=== PATIENT | female | born 1985 | race American Indian/Alaskan Native ===

== ENCOUNTER 2021-03-20 17:52 | Emergency (ER) | payer SELFPAY ==
[2021-03-20 19:32] LABS: Basophils % (Auto) 0.1 % (0.0-1.8); Hematocrit 37.6 % (30.3-42.9); Lymphocytes # (Auto) 2.1 K/mm3 (1.2-5.4); Lymphocytes % (Auto) 15.2 % (13.4-35.0); Mean Corpuscular HGB Conc 35 % (30-34); Mean Corpuscular Volume 91 fl (79-97); Monocytes # (Auto) 0.7 K/mm3 (0.0-0.8); Monocytes % (Auto) 5.2 % (0.0-7.3); Platelet Count 249 K/mm3 (140-440); Red Blood Count 4.12 M/mm3 (3.65-5.03)
[2021-03-20 19:37] LABS: Alanine Aminotransferase 17 units/L (7-56); Albumin 5.2 g/dL (3.9-5); BUN/Creatinine Ratio 18; Blood Urea Nitrogen 11 mg/dL (7-17); Calcium 9.9 mg/dL (8.4-10.2); Hemolysis Index 4
[2021-03-20] MEDS ORDERED: ONDANSETRON 4 MG/2 ML INJ IV ONE (22:39)
[2021-03-20] MEDS ORDERED: MORPHINE 4 MG/1 ML INJ IV ONE (22:39)
[2021-03-20] MEDS ORDERED: dexAMETHasone 20 MG/5 ML VIAL IV ONE (22:58)
[2021-03-20] MEDS ORDERED: SODIUM CHLORIDE 0.9% 1000 ML 1,000 ML IV ONE (22:59)
--- NOTE | 2021-03-20 23:02 | Emergency Department Report ---
ED General Adult HPI - General Chief complaint: Abdominal Pain Stated complaint: NAUSIA VOMITING Time Seen by Provider: 03/20/21 22:16 Source: police, EMS Mode of arrival: Wheelchair Limitations: No Limitations - History of Present Illness Initial comments: 35-year-old -[place] female patient presents with complaints of generalized abdominal pain and vomiting with diarrhea starting yesterday. She reports a history of Crohn's disease and states this feels like a flare. She denies any hematemesis/coffee-ground emesis, melena/hematochezia, urinary symptoms, cough, shortness of breath, or chest pain. She rates her current pain as a 9/10 in severity. She does admit to chills and sweats -: Sudden Severity scale (0 -10): 10 - Related Data Previous Rx's Medication Instructions Recorded Last Taken Type CLOTRIMAZOLE 1% Vag Cream [Mycelex 1 applicatio VG QHS PRN 7 Days #1 03/21/21 Unknown Rx Vag cream] tube Ciprofloxacin HCl 500 mg PO BID 7 Days #14 tablet 03/21/21 Unknown Rx Prednisone [predniSONE 10 mg 10 mg PO .TAPER #1 tab.ds.pk 03/21/21 Unknown Rx (6-Day Pack, 21 Tabs)] Promethazine HCl [Promethazine TAB] 12.5 mg PO [id number] PRN #12 tab 03/21/21 Unknown Rx metroNIDAZOLE [Flagyl] 500 mg PO Q8HR 7 Days #21 tablet 03/21/21 Unknown Rx Allergies Allergy/AdvReac Type Severity Reaction Status Date / Time metoclopramide [From Reglan] Allergy Unknown Verified 03/20/21 18:41 fentanyl AdvReac Unknown Verified 03/20/21 18:41 ED Review of Systems ROS: Stated complaint: NAUSIA VOMITING Other details as noted in HPI Constitutional: chills, malaise, weakness. denies: fever ENT: denies: throat pain Respiratory: denies: cough, shortness of breath Cardiovascular: denies: chest pain Gastrointestinal: abdominal pain, nausea, vomiting, diarrhea. denies: constipation, hematemesis, melena, hematochezia Genitourinary: denies: urgency, dysuria, frequency, hematuria Skin: denies: rash, lesions, change in color Neurological: denies: headache ED Past Medical Hx - Past Medical History Previous Medical History?: Yes Additional medical history: CHRONS/ COLITIS/ ANXIETY - Surgical History Additional Surgical History: COLOECTOMY - Medications Home Medications: Home Medications Medication Instructions Recorded Confirmed Last Taken Type CLOTRIMAZOLE 1% Vag Cream [Mycelex 1 applicatio VG QHS PRN 7 Days #1 03/21/21 Unknown Rx Vag cream] tube Ciprofloxacin HCl 500 mg PO BID 7 Days #14 tablet 03/21/21 Unknown Rx Prednisone [predniSONE 10 mg 10 mg PO .TAPER #1 tab.ds.pk 03/21/21 Unknown Rx (6-Day Pack, 21 Tabs)] Promethazine HCl [Promethazine TAB] 12.5 mg PO [id number] PRN #12 tab 03/21/21 Unknown Rx metroNIDAZOLE [Flagyl] 500 mg PO Q8HR 7 Days #21 tablet 03/21/21 Unknown Rx ED Physical Exam - General Limitations: No Limitations General appearance: alert, in no apparent distress - Head Head exam: Present: atraumatic, normocephalic - Eye Eye exam: Present: normal appearance - Neck Neck exam: Present: normal inspection - Respiratory Respiratory exam: Present: normal lung sounds bilaterally. Absent: respiratory distress - Cardiovascular Cardiovascular Exam: Present: regular rate, normal rhythm - GI/Abdominal GI/Abdominal exam: Present: soft, tenderness (Generalized), normal bowel sounds. Absent: distended, guarding, rebound, rigid - Back Exam Back exam: Present: full ROM - Neurological Exam Neurological exam: Present: alert, oriented X3, normal gait - Psychiatric Psychiatric exam: Present: normal affect, normal mood - Skin Skin exam: Present: warm, dry, intact, normal color. Absent: rash, diaphoretic ED Course Vital Signs 03/20/21 03/20/21 03/21/21 18:43 22:43 00:35 Temperature 99.9 F H Pulse Rate 68 Respiratory 24 18 18 Rate Blood Pressure 146/80 [Right] O2 Sat by Pulse 100 Oximetry ED Medical Decision Making - Lab Data Result diagrams: 03/20/21 18:56 03/20/21 18:56 Lab Results 03/20/21 03/20/21 03/20/21 Range/Units 18:56 18:56 18:56 WBC 14.0 H (4.5-11.0) K/mm3 RBC 4.12 (3.65-5.03) M/mm3 Hgb 13.0 (10.1-14.3) gm/dl Hct 37.6 (30.3-42.9) % MCV 91 (79-97) fl MCH 31 (28-32) pg MCHC 35 H (30-34) % RDW 13.0 L (13.2-15.2) % Plt Count 249 (140-440) K/mm3 Lymph % (Auto) 15.2 (13.4-35.0) % [place] % (Auto) 5.2 (0.0-7.3) % Eos % (Auto) 0.0 (0.0-4.3) % Baso % (Auto) 0.1 (0.0-1.8) % Lymph # (Auto) 2.1 (1.2-5.4) K/mm3 [place] # (Auto) 0.7 (0.0-0.8) K/mm3 Eos # (Auto) 0.0 (0.0-0.4) K/mm3 Baso # (Auto) 0.0 (0.0-0.1) K/mm3 Seg Neutrophils % 79.5 H (40.0-70.0) % Seg Neutrophils # 11.1 H (1.8-7.7) K/mm3 Sodium 141 (137-145) mmol/L Potassium 3.4 L (3.6-5.0) mmol/L Chloride 98.6 (98-107) mmol/L Carbon Dioxide 24 (22-30) mmol/L Anion Gap 22 mmol/L BUN 11 (7-17) mg/dL Creatinine 0.6 (0.6-1.2) mg/dL Estimated GFR > 60 ml/min BUN/Creatinine Ratio 18 % Glucose 141 H (65-100) mg/dL Calcium 9.9 (8.4-10.2) mg/dL Total Bilirubin 0.60 (0.1-1.2) mg/dL AST 30 (5-40) units/L ALT 17 (7-56) units/L Alkaline Phosphatase 50 (35-129) units/L Total Protein 7.4 (6.3-8.2) g/dL Albumin 5.2 H (3.9-5) g/dL Albumin/Globulin Ratio 2.4 % Lipase 18 (13-60) units/L HCG, Quant (0-4) mIU/mL 03/20/21 Range/Units 18:56 WBC (4.5-11.0) K/mm3 RBC (3.65-5.03) M/mm3 Hgb (10.1-14.3) gm/dl Hct (30.3-42.9) % MCV (79-97) fl MCH (28-32) pg MCHC (30-34) % RDW (13.2-15.2) % Plt Count (140-440) K/mm3 Lymph % (Auto) (13.4-35.0) % [place] % (Auto) (0.0-7.3) % Eos % (Auto) (0.0-4.3) % Baso % (Auto) (0.0-1.8) % Lymph # (Auto) (1.2-5.4) K/mm3 [place] # (Auto) (0.0-0.8) K/mm3 Eos # (Auto) (0.0-0.4) K/mm3 Baso # (Auto) (0.0-0.1) K/mm3 Seg Neutrophils % (40.0-70.0) % Seg Neutrophils # (1.8-7.7) K/mm3 Sodium (137-145) mmol/L Potassium (3.6-5.0) mmol/L Chloride (98-107) mmol/L Carbon Dioxide (22-30) mmol/L Anion Gap mmol/L BUN (7-17) mg/dL Creatinine (0.6-1.2) mg/dL Estimated GFR ml/min BUN/Creatinine Ratio % Glucose (65-100) mg/dL Calcium (8.4-10.2) mg/dL Total Bilirubin (0.1-1.2) mg/dL AST (5-40) units/L ALT (7-56) units/L Alkaline Phosphatase (35-129) units/L Total Protein (6.3-8.2) g/dL Albumin (3.9-5) g/dL Albumin/Globulin Ratio % Lipase (13-60) units/L HCG, Quant < 2 (0-4) mIU/mL - Radiology Data Radiology results: report reviewed CT ABDOMEN AND PELVIS WITH CONTRAST HISTORY: abdominal pain, hx of chrons. COMPARISON: None. TECHNIQUE: CT images of the abdomen and pelvis were obtained following administration of intravenous contrast. All CT scans at this location are performed using CT dose reduction for ALARA by means of automated exposure control. CONTRAST: 100 ml of intravenous contrast administered. FINDINGS: Lungs/bones: Lung bases are clear Abdomen/pelvis: There is diffuse fatty infiltration of the liver. Spleen, adr enal glands, pancreas and gallbladder appear normal. Upper GI tract shows mild thickening of the dis shanti esophagus. No bowel obstruction is seen no hydronephrosis. No evidence for appendicitis. Bilateral adnexal cyst. Uterus is heterogeneous and prominent. Prominent pelvic vessels and vasculature are noted. There is thickening of the mid and distal transverse colon and descending colon. IMPRESSION: 1. Bowel wall thickening within the transverse colon and descending colon. Findings could represent inflammatory bowel disease with history of Crohn's disease. No focal inflammatory change. No bowel obstruction. 2. Uterus is heterogeneous and enlarged with bilateral adnexal cysts. Increased pelvic congestion. - Medical Decision Making 35-year-old -[place] female patient presents with complaints of generalized abdominal pain and vomiting with diarrhea starting yesterday. She reports a history of Crohn's disease and states this feels like a flare. She denies any hematemesis/coffee-ground emesis, melena/hematochezia, urinary symptoms, cough, shortness of breath, or chest pain. She rates her current pain as a 9/10 in severity. She does admit to chills and sweats CBC shows white count of 14. No significant abnormalities noted on CMP or lipase. CT abdomen shows Bowel wall thickening within the transverse colon and descending colon. Findings could representinflammatory bowel disease with history of Crohn's disease. No focal inflammatory change. No bowel obstruction. Patient's pain and vomiting is controlled here in ED. She was given a dose of Decadron and will discharge home with steroids, Cipro, and Flagyl. Patient to follow-up with primary care in 2 days. Discussed signs and symptoms that should prompt immediate return to the emergency department in detail with patient who verbalizes understanding. Her vitals are within normal limits, she is nontoxic-appearing, she is stable for discharge Critical care attestation.: If time is entered above; I have spent that time in minutes in the direct care of this critically ill patient, excluding procedure time. ED Disposition Clinical Impression: Exacerbation of Crohn's disease Disposition: DC- TO HOME OR SELFCARE Is pt being admited?: No Condition: Stable Instructions: Abdominal Pain (ED) Additional Instructions: Please follow-up with your primary care provider in 2 days Prescriptions: CLOTRIMAZOLE 1% Vag Cream [Mycelex Vag cream] 1 applicatio VG QHS PRN 7 Days #1 tube PRN Reason: yeast infection Promethazine HCl [Promethazine TAB] 12.5 mg PO [id number] PRN #12 tab PRN Reason: Nausea Ciprofloxacin HCl 500 mg PO BID 7 Days #14 tablet metroNIDAZOLE [Flagyl] 500 mg PO Q8HR 7 Days #21 tablet Prednisone [predniSONE 10 mg (6-Day Pack, 21 Tabs)] 10 mg PO .TAPER #1 tab.ds.pk
--- NOTE | 2021-03-21 00:25 | Cat Scan Report ---
CT ABDOMEN AND PELVIS WITH CONTRAST HISTORY: abdominal pain, hx of chrons. COMPARISON: None. TECHNIQUE: CT images of the abdomen and pelvis were obtained following administration of intravenous contrast. All CT scans at this location are performed using CT dose reduction for ALARA by means of automated exposure control. CONTRAST: 100 ml of intravenous contrast administered. FINDINGS: Lungs/bones: Lung bases are clear Abdomen/pelvis: There is diffuse fatty infiltration of the liver. Spleen, adrenal glands, pancreas a nd gallbladder appear normal. Upper GI tract shows mild thickening of the distal esophagus. No bowel obstruction is seen no hydronephrosis. No evidence for appendicitis. Bilateral adnexal cyst. Uterus i s heterogeneous and prominent. Prominent pelvic vessels and vasculature are noted. There is thickening of the mid and distal transverse colon and descending colon. IMPRESSION: 1. Bowel wall thickening within the transverse colon and descending colon. Findings could represent i nflammatory bowel disease with history of Crohn's disease. No focal inflammatory change. No bowel obs truction. 2. Uterus is heterogeneous and enlarged with bilateral adnexal cysts. Increased pelvic congestion. Signer Name: Ben Christianson MD Signed: 03/21/2021 12:21 AM Workstation Name: [id number]
[2021-03-21] MEDS ORDERED: ONDANSETRON 4 MG/2 ML INJ IV ONE (00:28)
[2021-03-21] MEDS ORDERED: KETOROLAC 30 MG/1 ML INJ IV ONE (00:28)
[2021-03-21 02:19] VITALS: BP 129/86
== END 2021-03-21 02:00 | disposition home or self-care (01) ==
LOC: EDBD → ED 17:52
DX: K50.90 Crohn's disease, unspecified, without complications (principal); F41.9 Anxiety disorder, unspecified; Z79.899 Other long term (current) drug therapy; Z88.8 Allergy status to other drugs, medicaments and biological substances; Z98.890 Other specified postprocedural states
CPT/HCPCS: 36415; 74177; 80053; 83690; 84702; 85025; 96361; 96374; 96375; 96376; 99284; J1100; J1885; J2270; J2405; J7030; Q9967

== ENCOUNTER 2021-10-19 04:52 | Emergency (ER) | payer SELFPAY ==
[2021-10-19] MEDS ORDERED: SODIUM CHLORIDE 0.9% 1000 ML 1,000 ML IV ONE ×2 (05:17→07:10)
[2021-10-19 05:39] LABS: Hematocrit 43.6 % (30.3-42.9); Hemoglobin 14.2 gm/dl (10.1-14.3); Mean Corpuscular HGB Conc 33 % (30-34); Mean Corpuscular Volume 90 fl (79-97); Platelet Count 284 K/mm3 (140-440); Red Blood Count 4.87 M/mm3 (3.65-5.03); Red Cell Distribution Width 13.1 % (13.2-15.2)
[2021-10-19] MEDS ORDERED: HALOPERIDOL LACTATE 5 MG/1 ML INJ IM ONE (05:41)
[2021-10-19] MEDS ORDERED: MORPHINE 4 MG/1 ML INJ IV STA (05:41)
[2021-10-19] MEDS ORDERED: HYOSCYAMINE SUBL 0.125 MG TAB SL ONE (05:49)
--- NOTE | 2021-10-19 05:49 | Event Note ---
ED Screening Note ED Screening Note: 36-year-old -[place] female with a past medical history of possible Crohn's presents emergency department complaining of a flareup started 2 days ago after eating some salmon pasta. Preceding the nausea vomiting and stomach pain was started after eating some pasta she reports having about a 1 week h istory of nausea and cramping. No hemoptysis no hematemesis hematochezia This initial assessment/diagnostic orders/clinical plan/treatment(s) is/are subject to change based on patients health status, clinical progression and re- assessment by fellow clinical providers in the ED. Further treatment and workup at subsequent clinical providers discretion. Patient/guardian urged not to elope from the ED as their condition may be serious if not clinically assessed and managed. Initial orders include:
[2021-10-19 05:53] LABS: Alanine Aminotransferase 37 units/L (7-56); Albumin 5.3 g/dL (3.9-5); Blood Urea Nitrogen 17 mg/dL (7-17); Calcium 10.1 mg/dL (8.4-10.2); Hemolysis Index 5
[2021-10-19 06:01] LABS: BUN/Creatinine Ratio 24
--- NOTE | 2021-10-19 06:45 | Cat Scan Report ---
CT abdomen pelvis w con INDICATION / CLINICAL INFORMATION: Lower ABD Pain. History of Crohn's disease TECHNIQUE: Axial CT imaging of abdomen and pelvis was obtained with 100 cc Omnipaque 300 IV contrast. Coronal an d sagittal reformatted imaging obtained and reviewed. All CT scans at this location are performed us ing CT dose reduction for ALARA by means of automated exposure control. COMPARISON: Prior CT abdomen/pelvis 03/20/2021 FINDINGS: CT abdomen with IV contrast demonstrates normal appearance of the liver, spleen, pancreas, kidneys, a nd adrenal glands. Gallbladder is present without obvious abnormality. No biliary dilatation. Abdomin al aorta is unremarkable. CT pelvis with contrast demonstrates mild to moderately enlarged uterus. There is prominent vasculari ty surrounding the uterus consistent with pelvic congestion. This was noted on the prior CT and is no t particularly changed.. A normal appendix is present in the right midabdomen, retrocecal position. T race amount of free fluid is present in the posterior cul-de-sac. GI tract is grossly unremarkable. No CT findings to suggest active Crohn's disease or other acute inf lammatory process. Visualized lung bases are clear. No acute osseous abnormality. IMPRESSION: 1. No acute finding within the abdomen or pelvis. 2. Prominent pelvic vascularity surrounding the uterus consistent with pelvic congestion. This findin g is unchanged compared with prior CT of 03/20/2021. This can account for pelvic pain. 3. No evidence for active Crohn's disease or other acute inflammatory process on today's exam. 4. Trace amount of free fluid in the posterior cul-de-sac, most likely physiologic. Signer Name: Sue Suh MD Signed: 10/19/2021 6:41 AM Workstation Name: [id number]
[2021-10-19 06:57] LABS: Bacteria,Urine 4+ /HPF (Negative); Bilirubin,Urine NEG (Negative); Blood,Urine NEG (Negative); Color,Urine Amber (Yellow); Mucus,Urine 3+ /HPF
[2021-10-19] MEDS ORDERED: ONDANSETRON 4 MG/2 ML INJ IV ONE (06:57)
[2021-10-19 07:00] LABS: Band Neutrophils # (Manual) 0.1 K/mm3; Basophils % (Manual) 0 % (0.0-1.8); Eosinophils % (Manual) 0 % (0.0-4.3); Myelocytes # (Manual) 0.5 K/mm3; Promyelocytes # (Manual) 0.1 K/mm3; Total Cells Counted 100
[2021-10-19 07:01] LABS: Platelet Estimate Consistent w Auto
[2021-10-19] MEDS ORDERED: MORPHINE 4 MG/1 ML INJ IV ONE (07:10)
[2021-10-19] MEDS ORDERED: cefTRIAXone/NS 1 GM/50 ML 1 GM/50 ML BAG IV ONE (07:11)
--- NOTE | 2021-10-19 07:29 | Emergency Department Report ---
ED N/V/D HPI - General Chief complaint: Abdominal Pain Stated complaint: EMESIS Time Seen by Provider: 10/19/21 06:57 Source: patient Mode of arrival: Ambulatory Limitations: No Limitations - History of Present Illness Initial comments: 36-year-old female with a past medical history of anxiety and Crohn's disease and anxiety presents to the hospital planing of abdominal pain, nausea, vomiting, diarrhea and p.o. intolerance for the past 4 days. Patient states she has not had any urine output for last 2 days. She denies melena, hematochezia, hematemesis, or fever. She complains of intermittent 10/10 mid abdominal sharp stabbing pain is worse with palpation. No alleviating factors reported. October 2020 she states she was admitted to another hospital for similar symptoms and had endoscopy which showed inflammation of the first part of her i ntestines therefore she was diagnosed with Crohn's. Since her inpatient work-up and evaluation patient has not follow-up with GI doctor for further work-up and treatment. Patient was here in March 2021 with similar findings and CT showed thickening of the transverse and descending colon at that time and pelvic tension. Patient also had mild thickening of her distal esophagus at that time - Related Data Previous Rx's Medication Instructions Recorded Last Taken Type Acetaminophen/Codeine [Tylenol 1 tab PO Q8H PRN #10 tab 03/21/21 Unknown Rx /Codeine # 3 tab] CLOTRIMAZOLE 1% Vag Cream [Mycelex 1 applicatio VG QHS PRN 7 Days #1 03/21/21 Unknown Rx Vag cream] tube Ciprofloxacin HCl 500 mg PO BID 7 Days #14 tablet 03/21/21 Unknown Rx Prednisone [predniSONE 10 mg 10 mg PO .TAPER #1 tab.ds.pk 03/21/21 Unknown Rx (6-Day Pack, 21 Tabs)] Promethazine HCl [Promethazine TAB] 12.5 mg PO [id number] PRN #12 tab 03/21/21 Unknown Rx metroNIDAZOLE [Flagyl] 500 mg PO Q8HR 7 Days #21 tablet 03/21/21 Unknown Rx Acetaminophen/Codeine [Tylenol 1 tab PO Q6H PRN #10 tab 10/19/21 Unknown Rx /Codeine # 3 tab] Dicyclomine [Bentyl] 20 mg PO QID #12 tablet 10/19/21 Unknown Rx Nitrofurantoin Bledsoe/M-Cryst 100 mg PO Q12HR #10 capsule 10/19/21 Unknown Rx [Macrobid CAP] Ondansetron [Zofran Odt] 4 mg PO Q8HR PRN #20 tab.rapdis 10/19/21 Unknown Rx Allergies Allergy/AdvReac Type Severity Reaction Status Date / Time metoclopramide [From Reglan] Allergy Unknown Verified 03/20/21 18:41 fentanyl AdvReac Unknown Verified 03/20/21 18:41 ED Review of Systems ROS: Stated complaint: EMESIS Other details as noted in HPI ED Past Medical Hx - Past Medical History Previous Medical History?: Yes Additional medical history: CHRONS/ ANXIETY - Surgical History Past Surgical History?: Yes Additional Surgical History: endoscopy - Social History Smoking Status: Never Smoker Substance Use Type: None - Medications Home Medications: Home Medications Medication Instructions Recorded Confirmed Last Taken Type Acetaminophen/Codeine [Tylenol 1 tab PO Q8H PRN #10 tab 03/21/21 Unknown Rx /Codeine # 3 tab] CLOTRIMAZOLE 1% Vag Cream [Mycelex 1 applicatio VG QHS PRN 7 Days #1 03/21/21 Unknown Rx Vag cream] tube Ciprofloxacin HCl 500 mg PO BID 7 Days #14 tablet 03/21/21 Unknown Rx Prednisone [predniSONE 10 mg 10 mg PO .TAPER #1 tab.ds.pk 03/21/21 Unknown Rx (6-Day Pack, 21 Tabs)] Promethazine HCl [Promethazine TAB] 12.5 mg PO [id number] PRN #12 tab 03/21/21 Unknown Rx metroNIDAZOLE [Flagyl] 500 mg PO Q8HR 7 Days #21 tablet 03/21/21 Unknown Rx Acetaminophen/Codeine [Tylenol 1 tab PO Q6H PRN #10 tab 10/19/21 Unknown Rx /Codeine # 3 tab] Dicyclomine [Bentyl] 20 mg PO QID #12 tablet 10/19/21 Unknown Rx Nitrofurantoin Bledsoe/M-Cryst 100 mg PO Q12HR #10 capsule 10/19/21 Unknown Rx [Macrobid CAP] Ondansetron [Zofran Odt] 4 mg PO Q8HR PRN #20 tab.rapdis 10/19/21 Unknown Rx ED Physical Exam - General Limitations: No Limitations - Other Other exam information: General: No acute distress Head: Atraumatic Eyes: normal appearance Neck: Normal appearance, no midline tenderness Chest: Clear to auscultation bilaterally CV: Regular rate and rhythm Abdomen: Soft, normal bowel sounds, midepigastric tenderness to palpation , nondistended, no rebound or guarding Back: Normal inspection Extremity: Normal inspection, full range of motion Neuro: Alert O x 3, no facial asymmetry, speech clear, no gross motor sensory deficit Psych: Appropriate behavior Skin: No rash ED Course Vital Signs 10/19/21 10/19/21 04:59 05:53 Temperature 98.3 F Pulse Rate 64 Respiratory 18 18 Rate Blood Pressure 120/85 O2 Sat by Pulse 97 Oximetry - Reevaluation(s) Reevaluation #1: 10/19/21 07:33 Patient was treated with medications prior to my evaluation. Symptoms improved but persistent. Patient has not vomited since meds were administered. Additional pain medicine, nausea medication, Pepcid, and IV fluids ordered. UA suggestive of infection versus contamination. Rocephin ordered ED Medical Decision Making - Lab Data Result diagrams: 10/19/21 05:19 10/19/21 05:19 Lab Results 10/19/21 10/19/21 10/19/21 Range/Units 05:19 05:19 05:19 WBC 10.2 (4.5-11.0) K/mm3 RBC 4.87 (3.65-5.03) M/mm3 Hgb 14.2 (10.1-14.3) gm/dl Hct 43.6 H (30.3-42.9) % MCV 90 (79-97) fl MCH 29 (28-32) pg MCHC 33 (30-34) % RDW 13.1 L (13.2-15.2) % Plt Count 284 (140-440) K/mm3 Baso % (Auto) Post Doctoral Fellow Add Manual Diff Complete Total Counted 100 Seg Neuts % (Manual) 81.0 H (40.0-70.0) % Band Neutrophils % 1.0 % Lymphocytes % (Manual) 8.0 L (13.4-35.0) % Reactive Lymphs % (Man) 0 % Monocytes % (Manual) 4.0 (0.0-7.3) % Eosinophils % (Manual) 0 (0.0-4.3) % Basophils % (Manual) 0 (0.0-1.8) % Metamyelocytes % 0 % Myelocytes % 5.0 % Promyelocytes % 1.0 % Blast Cells % 0 % Nucleated RBC % Not Reportable Seg Neutrophils # Man 8.3 H (1.8-7.7) K/mm3 Band Neutrophils # 0.1 K/mm3 Lymphocytes # (Manual) 0.8 L (1.2-5.4) K/mm3 Abs React Lymphs (Man) 0.0 K/mm3 Monocytes # (Manual) 0.4 (0.0-0.8) K/mm3 Eosinophils # (Manual) 0.0 (0.0-0.4) K/mm3 Basophils # (Manual) 0.0 (0.0-0.1) K/mm3 Metamyelocytes # 0.0 K/mm3 Myelocytes # 0.5 K/mm3 Promyelocytes # 0.1 K/mm3 Blast Cells # 0.0 K/mm3 WBC Morphology Not Reportable Hypersegmented Neuts Not Reportable Hyposegmented Neuts Not Reportable Hypogranular Neuts Not Reportable Smudge Cells Not Reportable Toxic Granulation Not Reportable Toxic Vacuolation Not Reportable Dohle Bodies Not Reportable Pelger-Huet Anomaly Not Reportable Nilesh Rods Not Reportable Platelet Estimate Consistent w auto Clumped Platelets Not Reportable Plt Clumps, EDTA Not Reportable Large Platelets Not Reportable Giant Platelets Not Reportable Platelet Satelliting Not Reportable Plt Morphology Comment Not Reportable RBC Morphology Not Reportable Dimorphic RBCs Not Reportable Polychromasia Not Reportable Hypochromasia Not Reportable Poikilocytosis Not Reportable Anisocytosis Not Reportable Microcytosis Not Reportable Macrocytosis Not Reportable Spherocytes Not Reportable Pappenheimer Bodies Not Reportable Sickle Cells Not Reportable Target Cells Not Reportable Tear Drop Cells Not Reportable Ovalocytes Not Reportable Helmet Cells Not Reportable Vogel-Hutton Bodies Not Reportable Parachute Rings Not Reportable Erick Cells Not Reportable Bite Cells Not Reportable Crenated Cell Not Reportable Elliptocytes Not Reportable Acanthocytes (Spur) Not Reportable Rouleaux Not Reportable Hemoglobin C Crystals Not Reportable Schistocytes Not Reportable Malaria parasites Not Reportable Norm Bodies Not Reportable Hem Pathologist Commnt No Sodium 141 (137-145) mmol/L Potassium 3.0 L (3.6-5.0) mmol/L Chloride 95.9 L (98-107) mmol/L Carbon Dioxide 24 (22-30) mmol/L Anion Gap 24 mmol/L BUN 17 (7-17) mg/dL Creatinine 0.7 (0.6-1.2) mg/dL Estimated GFR > 60 ml/min BUN/Creatinine Ratio 24 % Glucose 177 H (65-100) mg/dL Calcium 10.1 (8.4-10.2) mg/dL Total Bilirubin 1.00 (0.1-1.2) mg/dL AST 28 (5-40) units/L ALT 37 (7-56) units/L Alkaline Phosphatase 56 (35-129) units/L Total Protein 8.3 H (6.3-8.2) g/dL Albumin 5.3 H (3.9-5) g/dL Albumin/Globulin Ratio 1.8 % Lipase 17 (13-60) units/L HCG, Qual Negative (Negative) Urine Color (Yellow) Urine Turbidity (Clear) Urine pH (5.0-7.0) Ur Specific [place] (1.003-1.030) Urine Protein (Negative) mg/dL Urine Glucose (UA) (Negative) mg/dL Urine Ketones (Negative) mg/dL Urine Blood (Negative) Urine Nitrite (Negative) Urine Bilirubin (Negative) Urine Urobilinogen (<2.0) mg/dL Ur Leukocyte Esterase (Negative) Urine WBC (Auto) (0.0-6.0) /HPF Urine RBC (Auto) (0.0-6.0) /HPF U Epithel Cells (Auto) (0-13.0) /HPF Urine Bacteria (Auto) (Negative) /HPF Urine Mucus /HPF Ur Yeast w Hyphae /HPF 10/19/21 Range/Units 06:39 WBC (4.5-11.0) K/mm3 RBC (3.65-5.03) M/mm3 Hgb (10.1-14.3) gm/dl Hct (30.3-42.9) % MCV (79-97) fl MCH (28-32) pg MCHC (30-34) % RDW (13.2-15.2) % Plt Count (140-440) K/mm3 Baso % (Auto) Add Manual Diff Total Counted Seg Neuts % (Manual) (40.0-70.0) % Band Neutrophils % % Lymphocytes % (Manual) (13.4-35.0) % Reactive Lymphs % (Man) % Monocytes % (Manual) (0.0-7.3) % Eosinophils % (Manual) (0.0-4.3) % Basophils % (Manual) (0.0-1.8) % Metamyelocytes % % Myelocytes % % Promyelocytes % % Blast Cells % % Nucleated RBC % Seg Neutrophils # Man (1.8-7.7) K/mm3 Band Neutrophils # K/mm3 Lymphocytes # (Manual) (1.2-5.4) K/mm3 Abs React Lymphs (Man) K/mm3 Monocytes # (Manual) (0.0-0.8) K/mm3 Eosinophils # (Manual) (0.0-0.4) K/mm3 Basophils # (Manual) (0.0-0.1) K/mm3 Metamyelocytes # K/mm3 Myelocytes # K/mm3 Promyelocytes # K/mm3 Blast Cells # K/mm3 WBC Morphology Hypersegmented Neuts Hyposegmented Neuts Hypogranular Neuts Smudge Cells Toxic Granulation Toxic Vacuolation Dohle Bodies Pelger-Huet Anomaly Nilesh Rods Platelet Estimate Clumped Platelets Plt Clumps, EDTA Large Platelets Giant Platelets Platelet Satelliting Plt Morphology Comment RBC Morphology Dimorphic RBCs Polychromasia Hypochromasia Poikilocytosis Anisocytosis Microcytosis Macrocytosis Spherocytes Pappenheimer Bodies Sickle Cells Target Cells Tear Drop Cells Ovalocytes Helmet Cells Vogel-Hutton Bodies Parachute Rings Erick Cells Bite Cells Crenated Cell Elliptocytes Acanthocytes (Spur) Rouleaux Hemoglobin C Crystals Schistocytes Malaria parasites Norm Bodies Hem Pathologist Commnt Sodium (137-145) mmol/L Potassium (3.6-5.0) mmol/L Chloride (98-107) mmol/L Carbon Dioxide (22-30) mmol/L Anion Gap mmol/L BUN (7-17) mg/dL Creatinine (0.6-1.2) mg/dL Estimated GFR ml/min BUN/Creatinine Ratio % Glucose (65-100) mg/dL Calcium (8.4-10.2) mg/dL Total Bilirubin (0.1-1.2) mg/dL AST (5-40) units/L ALT (7-56) units/L Alkaline Phosphatase (35-129) units/L Total Protein (6.3-8.2) g/dL Albumin (3.9-5) g/dL Albumin/Globulin Ratio % Lipase (13-60) units/L HCG, Qual (Negative) Urine Color [place] (Yellow) Urine Turbidity Slightly-cloudy (Clear) Urine pH 6.0 (5.0-7.0) Ur Specific [place] > 1.030 H (1.003-1.030) Urine Protein 100 mg/dl (Negative) mg/dL Urine Glucose (UA) Neg (Negative) mg/dL Urine Ketones 80 (Negative) mg/dL Urine Blood Neg (Negative) Urine Nitrite Neg (Negative) Urine Bilirubin Neg (Negative) Urine Urobilinogen 2.0 (<2.0) mg/dL Ur Leukocyte Esterase Neg (Negative) Urine WBC (Auto) 11.0 H (0.0-6.0) /HPF Urine RBC (Auto) 5.0 (0.0-6.0) /HPF U Epithel Cells (Auto) 42.0 H (0-13.0) /HPF Urine Bacteria (Auto) 4+ (Negative) /HPF Urine Mucus 3+ /HPF Ur Yeast w Hyphae 3+ /HPF - Radiology Data Radiology results: report reviewed CT abdomen pelvis w con INDICATION / CLINICAL INFORMATION: Lower ABD Pain. History of Crohn's disease TECHNIQUE: Axial CT imaging of abdomen and pelvis was obtained with 100 cc Omnipaque 300 IV contrast. Coronal and sagittal reformatted imaging obtained and reviewed. All CT scans at this location are performed using CT dose reduction for ALARA by means of automated exposure control. COMPARISON: Prior CT abdomen/pelvis 03/20/2021 FINDINGS: CT abdomen with IV contrast demonstrates normal appearance of the liver, spleen, pancreas, kidneys, and adrenal glands. Gallbladder is present without obvious abnormality. No biliary dilatation. Abdominal aorta is unremarkable. CT pelvis with contrast demonstrates mild to moderately enlarged uterus. There is prominent vascularity surrounding the uterus consistent with pelvic congestion. This was noted on the prior CT and is not particularly changed.. A normal appendix is present in the right midabdomen, retrocecal position. Trace amount of free fluid is present in the posterior cul-de-sac. GI tract is grossly unremarkable. No CT findings to suggest active Crohn's disease or other acute inflammatory process. Visualized lung bases are clear. No acute osseous abnormality. IMPRESSION: 1. No acute finding within the abdomen or pelvis. 2. Prominent pelvic vascularity surrounding the uterus consistent with pelvic congestion. This finding is unchanged compared with prior CT of 03/20/2021. This can account for pelvic pain. 3. No evidence for active Crohn's disease or other acute inflammatory process on today's exam. 4. Trace amount of free fluid in the posterior cul-de-sac, most likely phy siologic. - Medical Decision Making 36-year-old female presents to the hospital plan nausea, vomiting, diarrhea with p.o. intolerance for last several days. Patient symptoms improved with ED treatment. Tolerating p.o. intake with reduction in pain. Labs and urine con sistent with hypokalemia and dehydration. Possible UTI versus contamination given elevated epithelial cells. Patient did receive one dose of IV Rocephin and antibiotics will be continued. Chronic findings of pelvic congestion also noted on CAT scan and outpatient follow-up with LITHOGRAPHY CONTACT WORKER provided. Copy of CT provided. Outpatient follow-up with GI and PMD will also be encouraged - Differential Diagnosis Gastroenteritis, inflammatory bowel disease, UTI, viral syndrome Critical Care Time: No Critical care attestation.: If time is entered above; I have spent that time in minutes in the direct care of this critically ill patient, excluding procedure time. ED Disposition Clinical Impression: Acute gastroenteritis, Pelvic congestion, UTI (urinary tract infection) Disposition: 01 HOME / SELF CARE / HOMELESS Is pt being admited?: No Does the pt Need Aspirin: No Condition: Stable Instructions: Abdominal Pain (ED), Viral Gastroenteritis, Adult, Urinary Tract Infection, Adult, [id number] Additional Instructions: Take the medication as prescribed. Follow-up with primary care, LITHOGRAPHY CONTACT WORKER, and GI doctor. Return if symptoms worsen as indicated by your discharge instructions. Prescriptions: Dicyclomine [Bentyl] 20 mg PO QID #12 tablet Nitrofurantoin Bledsoe/M-Cryst [Macrobid CAP] 100 mg PO Q12HR #10 capsule Acetaminophen/Codeine [Tylenol /Codeine # 3 tab] 1 tab PO Q6H PRN #10 tab PRN Reason: Pain , Severe (7-10) Ondansetron [Zofran Odt] 4 mg PO Q8HR PRN #20 tab.rapdis PRN Reason: Nausea And Vomiting Referrals: PRIMARY CARE, [Primary Care Provider] - 3-5 Days BLUE FLORES MD [Staff Physician] - 7-10 days (LITHOGRAPHY CONTACT WORKER doctor) SARAH DEXTER MD [Staff Physician] - 3-5 Days (Gastroenterology) AVTAR MIKE MD [Staff Physician] - 3-5 Days (Primary care doctor) Time of Disposition: 10:36
[2021-10-19] MEDS ORDERED: FAMOTIDINE 20 MG/2 ML INJ IV ONE (07:32)
[2021-10-19] MEDS ORDERED: POTASSIUM CHLORIDE ER 20 MEQ TAB PO ONE (07:36)
[2021-10-19] MEDS ORDERED: D5W/0.9% NACL 1,000 ML IV SCH (08:00)
[2021-10-19 10:55] VITALS: BP 129/74
== END 2021-10-19 10:52 | disposition home or self-care (01) ==
LOC: ED 04:52
DX: K52.9 Noninfective gastroenteritis and colitis, unspecified (principal); N94.89 Other specified conditions associated with female genital organs and menstrual cycle; N39.0 Urinary tract infection, site not specified; K50.90 Crohn's disease, unspecified, without complications; Z88.5 Allergy status to narcotic agent; Z88.8 Allergy status to other drugs, medicaments and biological substances
CPT/HCPCS: 36415; 74177; 80053; 81001; 83690; 84703; 85007; 85025; 87086; 96361; 96365; 96372; 96375; 96376; 99284; J0696; J1630; J2270; J2405; J3490; J7030; J7042; Q9967; Q0162